=== PATIENT | female | born 1980 | race Caucasian/White ===

== ENCOUNTER 2016-11-27 14:13 | Inpatient (IN) | payer BC ==
[~2016-11-27] VITALS: Ht 152.4 cm; Wt 67.3 kg
[~2016-11-27 14:13] MED LIST: IBU-6600 MG; IBU-6600 MG PO; PERCOCET 325 MG1 TA2 PO; PRENATAL1 TA2 PO
[2016-12-24] VITALS (20 sets, daily range): BP systolic 81–123; BP diastolic 40–67; PULSE 65–89; TEMP 97.5–97.8
[2016-12-24 06:20] LABS: BASO % 0.3 % (0.0-2.0); EOS # 0.1 (0.0-0.7); EOS % 1.7 % (0-4.0); GRAN # 4.7 (1.4-6.5); GRAN % 64.4 % (42.2-75.2); LYMPH % 27.2 % (20.0-51.0); MEAN CELL VOLUME 85 fl (80.0-100.0); MEAN CORPUSCULAR HGB CONC 32 g/dl (33.0-37.0); MEAN PLATELET VOLUME 10.2 fl (7.4-10.4); MONO # 0.4 (0.1-0.6); PLATELET COUNT 243 K/mm3 (130-400); RED BLOOD COUNT 4.17 M/mm3 (4.10-5.30); REDCELL DISTRIBUTION WIDTH-CV 14.9 % (11.5-14.5); WHITE BLOOD COUNT 7.2 K/mm3 (4.8-10.8)
[2016-12-24 06:26] LABS: HEMATOCRIT 35.6 % (37.0-47.0); HEMOGLOBIN 11.5 g/dl (12.5-16.0); MEAN CORPUSCULAR HEMOGLOBIN 28 pg (27.0-31.0)
[2016-12-24] MEDS ORDERED: UNISOM25 MG PO (06:30)
[2016-12-25 03:15] VITALS: BP 94/56; PULSE 76; TEMP 98.1
[2016-12-25 07:30] LABS: BASO % 0.3 % (0.0-2.0); EOS # 0.1 (0.0-0.7); EOS % 1.2 % (0-4.0); GRAN # 7.1 (1.4-6.5); GRAN % 70.5 % (42.2-75.2); LYMPH # 2.2 (1.2-3.4); LYMPH % 21.6 % (20.0-51.0); MEAN CELL VOLUME 86 fl (80.0-100.0); MEAN CORPUSCULAR HGB CONC 32 g/dl (33.0-37.0); MEAN PLATELET VOLUME 10.2 fl (7.4-10.4); MONO # 0.5 (0.1-0.6); MONO % 5.2 % (1.7-9.3); PLATELET COUNT 201 K/mm3 (130-400); RED BLOOD COUNT 3.53 M/mm3 (4.10-5.30); REDCELL DISTRIBUTION WIDTH-CV 15.4 % (11.5-14.5); WHITE BLOOD COUNT 10.1 K/mm3 (4.8-10.8)
[2016-12-25 07:37] LABS: HEMATOCRIT 30.5 % (37.0-47.0); HEMOGLOBIN 9.8 g/dl (12.5-16.0); MEAN CORPUSCULAR HEMOGLOBIN 28 pg (27.0-31.0)
[2016-12-25 07:45] VITALS: BP 91/52; PULSE 84; TEMP 98
[2016-12-25 15:55] VITALS: BP 102/68; PULSE 96; TEMP 97.6
[2016-12-25 20:35] VITALS: BP 114/70; PULSE 91; TEMP 98.1
[2016-12-26 06:59] VITALS: BP 110/65; PULSE 85; TEMP 98.1
[2016-12-26] MEDS ORDERED: IBU800 M1 PO (08:53)
[2016-12-26] MEDS ORDERED: PERCOCET 325 MG1 TA2 PO (08:53)
[2016-12-26 16:11] VITALS: BP 110/68; PULSE 78; TEMP 98
== END 2016-12-26 17:11 | disposition home or self-care (01) | DRG 766 ==
LOC: EDSTATUS 12-22 08:13 → LDRO 12-22 14:13 → OB 12-24 05:34 → LDR 12-24 08:14 → OB 12-26 17:11
PROVIDERS: Student in an Organized Health Care Education/Training Program
PROC: 10D00Z1 Extraction of Products of Conception, Low, Open Approach (ICD-10-PCS; principal; 2016-12-24)
DX: O34.219 Maternal care for unspecified type scar from previous cesarean delivery (principal); N85.8 Other specified noninflammatory disorders of uterus; O26.843 Uterine size-date discrepancy, third trimester; Z3A.39 39 weeks gestation of pregnancy; Z37.0 Single live birth
CPT/HCPCS: J0690; J1885; J2270; J2370; J2405; J2590; J7120